=== PATIENT | male | born 1975 ===

== ENCOUNTER 2021-04-12 13:54 | Emergency (ER) | payer OTHER, SELFPAY ==
[2021-04-12 15:35] LABS: HIV (1/2) Antibody/Antigen Non-Reactive (NonReactive); Hep C IgG Ab Non-Reactive (NonReactive); Hep C Index 0.05 S/CO (0-0.79)
[2021-04-12 16:41] LABS: HBSAB Concentration 4361.54 mIU/mL; Hep B Surf AB Reactive (NonReactive)
== END 2021-04-12 16:10 | disposition home or self-care (01) ==
LOC: ERS 13:54
DX: S61.432A Puncture wound without foreign body of left hand, initial encounter (principal); I10 Essential (primary) hypertension; Z79.899 Other long term (current) drug therapy; W46.0XXA Contact with hypodermic needle, initial encounter
CPT/HCPCS: 36415; 86706; 86803; 87389; 99283